=== PATIENT | male | born 1950 | race Caucasian/White ===

== ENCOUNTER 2018-06-13 06:32 | Emergency (ER) | payer MEDICARE, OTHER ==
--- NOTE | 2018-06-13 07:36 | ED ---
General Adult HPI - General Chief complaint: ENT Stated complaint: Coughing up blood Time Seen by Provider: 06/13/18 07:17 Source: patient, RN notes reviewed Mode of arrival: ambulatory Limitations: no limitations - History of Present Illness Initial comments: Patient 67-year-old male presenting to the emergency room today with a chief complaint of a foreign body sensation to the back of his throat. Patient does admit that he woke up this morning approximately 5 AM with feeling of foreign body sensation. He states he got up and was coughing. He does admit that he got a drink of water was able to keep it down. Patient states that he still felt foreign body when he laid back down. He started coughing again. He states that he did cough up a small amount of blood. Patient states less than teaspoon. Patient states that the foreign body sensation has improved. Patient does admit that he was treated for sinus infection this past week finishing antibiotics. States still had some drainage. Patient denies any other complaints or symptoms. Patient denies any recent fever, chills, shortness of breath, chest pain, back pain, abdominal pain, nausea or vomiting, numbness or tingling, dysuria or hematuria, or any other complaints. - Related Data Home Medications Medication Instructions Recorded Confirmed Aspirin 81 mg PO DAILY 04/07/14 06/13/18 Atorvastatin [Lipitor] 40 mg PO HS 04/07/14 06/13/18 Metoprolol Succinate (ER) [Toprol 25 mg PO DAILY 06/13/18 06/13/18 XL] Previous Rx's Medication Instructions Recorded Azithromycin [Zithromax Z-pack] 0 mg PO DIRECTED #6 tab 06/13/18 Allergies Allergy/AdvReac Type Severity Reaction Status Date / Time No Known Allergies Allergy Verified 06/13/18 06:44 Review of Systems ROS Statement: Those systems with pertinent positive or pertinent negative responses have been documented in the HPI. ROS Other: All systems not noted in ROS Statement are negative. Past Medical History Additional Past Medical History / Comment(s): hypercholestremia. History of Any Multi-Drug Resistant Organisms: None Reported Past Surgical History: No Surgical Hx Reported Additional Past Surgical History / Comment(s): right eye surgery. Past Psychological History: No Psychological Hx Reported Smoking Status: Former smoker Past Alcohol Use History: Occasional Past Drug Use History: None Reported General Exam - General Exam Comments Initial Comments: General: The patient is awake and alert, in no distress, and does not appear acutely ill. Eye: There is normal conjunctiva bilaterally. No signs of icterus. Ears, nose, mouth and throat: There are moist mucous membranes and no oral lesions. Uvula midline. Patient swallows without any difficulty. Neck: The neck is supple, there is no tenderness or JVD. Cardiovascular: There is a regular rate and rhythm. No murmur, rub or gallop is appreciated. Respiratory: Lungs are clear to auscultation, respirations are non-labored, breath sounds are equal. No wheezes, stridor, rales, or rhonchi. Musculoskeletal: Normal ROM, no tenderness. Neurological: A&O x 3. CN II-XII intact, There are no obvious motor or sensory deficits. Coordination appears grossly intact. Speech is normal. Skin: Skin is warm and dry and no rashes or lesions are noted. Psychiatric: Cooperative, appropriate mood & affect, normal judgment. Limitations: no limitations Course Vital Signs 06/13/18 06:39 Temperature 97.0 F L Pulse Rate 82 Respiratory 17 Rate Blood Pressure 156/73 O2 Sat by Pulse 96 Oximetry Medical Decision Making - Medical Decision Making Patient's x-rays reviewed are negative for any acute abnormality. Patient does admit that he's had sinus drainage. Does admit that it's feeling better after he was on antibiotics. States that his drainage. Also admits that he has radiated heat. It was discussed about trying a committed fire in the house. The patient will be given a prescription for Z-Grzegorz but is advised to hold this over the next 2 days to see if symptoms are improving. Patient states understanding and is in agreement. Disposition Clinical Impression: Sinus congestion Disposition: HOME SELF-CARE Condition: Good Instructions (If sedation given, give patient instructions): Sinusitis (ED) Additional Instructions: Please use medication as discussed. Please follow-up with family doctor in the next 2 days of symptoms have not improved. Please return to emergency room if the symptoms increase or worsen or for any other concerns. Prescriptions: Azithromycin [Zithromax Z-pack] 0 mg PO DIRECTED #6 tab Is patient prescribed a controlled substance at d/c from ED?: No Referrals: Thomas Soto, [Primary Care Provider] - 1-2 days
--- NOTE | 2018-06-13 08:21 | XR ---
EXAMINATION TYPE: XR chest 2V DATE OF EXAM: 06/13/2018 COMPARISON: 04/07/2014 HISTORY: Shortness of breath TECHNIQUE: Frontal and lateral views of the chest are obtained. FINDINGS: Scattered senescent parenchymal changes noted. Hyperinflation compatible with COPD. No evidence for infiltrate. No evidence for atelectasis. Stable granuloma left midlung zone. Heart size is stable. Mediastinal structures are stable and grossly unremarkable. No evidence for hilar prominence. Degenerative changes dorsal spine. IMPRESSION: 1. No evidence for acute pulmonary disease.
--- NOTE | 2018-06-13 08:22 | XR ---
EXAMINATION TYPE: XR soft tissue neck DATE OF EXAM: 06/13/2018 COMPARISON: NONE HISTORY: woke with a feeling of something stuck in his throat TECHNIQUE: 2 views of the soft tissues of the neck are submitted. FINDINGS: The airway is patent. Normal appearing epiglottis. Retropharyngeal soft tissues are withi n normal limits. No evidence for radiopaque foreign body. Moderate degenerative changes cervical sp ine. Ventral spondylosis. IMPRESSION: No radiopaque foreign body identified at this time.
[2018-06-13 08:27] VITALS: RESP 18
[2018-06-13 08:46] VITALS: BP 137/72; PULSE 63; TEMP 98.5
== END 2018-06-13 08:40 | disposition home or self-care (01) ==
LOC: EC 06:32
DX: J34.89 Other specified disorders of nose and nasal sinuses (principal); E78.00 Pure hypercholesterolemia, unspecified; Z87.891 Personal history of nicotine dependence; Z79.899 Other long term (current) drug therapy
CPT/HCPCS: 70360; 71046; 99283